=== PATIENT | male | born 1990 | race Caucasian/White ===

== ENCOUNTER 2018-05-18 17:09 | Emergency (ER) | payer OTHER ==
--- NOTE | 2018-05-18 17:27 | EDPHY ---
General - Diagnostics Imaging: Discussed imaging studies w/ yardage caller Radiologist, I viewed and interpreted images myself - History Smoking Status: Current some day smoker Time Seen by Provider: 05/18/18 17:17 Narrative: CHIEF COMPLAINT: Abdominal pain, diarrhea HISTORY OF PRESENT ILLNESS: Patient presents by private vehicle with complaints of abdominal pain, diarrhea and bloody stools. He reports 2 days history of abdominal pain. He points the epigastrium in the right side of his abdomen. Gradual onset. Constant duration. Symptoms do wax and wane but they never fully resolved. Rated as a 7 /10 at this time. Occasionally 10/10. Worse with palpation and ingestion of food. Some improvement rest and while in p.o.. Associated with nausea but no vomiting. No fever chills. No trauma or injury. He has had diarrhea over the past couple days, and this evening had 1 episode of bloody stool. He also has some dark stool, that he attributes to taking Pepto-Bismol. He has no chest pain or shortness of breath. No fever. No anticoagulation use. No previous history of this. Does have a mother with history of ulcerative colitis. No other associated complaints or modifying factors. REVIEW OF SYSTEMS: 10 systems were reviewed and negative with the exception of the elements mentioned in the history of present illness. PCP: Dr. Sorto SPECIALISTS: None PAST MEDICAL HISTORY: Denies PAST SURGICAL HISTORY: No surgical history. SOCIAL HISTORY: Occasional tobacco, alcohol marijuana use. Lives independently. 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 Well appearing. Head: normocephalic, atraumatic Eyes: Pupils equal and round, no conjunctival pallor or injection ENT, Mouth: Mucous membranes moist. No oral mucosal lesions. Neck: Normal inspection, supple, non-tender Respiratory: Lungs are clear to auscultation Cardiovascular: Regular rate and rhythm. No murmur. Good signs Gastrointestinal: Abdomen is soft and nondistended. There is moderate tenderness in the epigastrium and the right quadrants. Bowel sounds are present all 4 quadrants. There is no tympany rigidity. No guarding. No palpable mass. Back: non-tender, no bony abnormalities Neurological: A&O, nonfocal, normal gait Skin: Warm and dry, no rash. No petechiae or purpura Extremities: Nontender, no pedal edema Psychiatric: Mood and affect normal DIFFERENTIAL DIAGNOSES: Including but not limited to ulcerative colitis, Crohn's, irritable bowel, mesenteric adenitis, colitis, diverticulitis, pancreatitis, gastritis, cholecystitis MDM: 5:20 p.m. Abdominal pain with reported diarrhea and 1 episode of bright red blood in stools. Patient has history abdominal examination this suggest possible Crohn's /inflammatory bowel. He does have family history of this. No previous episode of this. He does have moderate to severe tenderness in the epigastrium right side. He is not guarding. He has no acute distress. Do feel he warrants CT imaging at this time. IV has been established. Laboratory studies pending. IV fluid pain medication ordered. 6:00 p.m.. Laboratory studies are well within normal limits. CT scan pending. 6:52 p.m. Notified by radiologist Dr. Heredia. We discussed the CT findings of the abdomen and pelvis. There are inflammatory changes in the ascending colon up to the hepatic flexure. There may also be some involvement of the sigmoid colon and rectum. There is some free fluid noted. No pneumoperitoneum. I discussed the case with Dr. Aguilar and he will evaluate the patient. 7:00 p.m. We have both evaluated the patient and agree that he is stable for discharge home. The patient agrees with this as well. He would like to go home. His pain is tolerable. We discussed discharge home with pain medication, nausea medication follow up with primary care physician and GI physician for definitive care. We discussed strict ED precautions for any fever, worsening pain, nausea, vomiting. We discussed clear liquid diet for the next few days and dietary changes. I have answered all his questions. He is well-appearing and discharged stable condition. SUPERVISION: Patient was evaluated and examined in conjunction with my secondary supervising physician as documented. We have both examined the patient. CONSULTATION: None (Carloz To) - Diagnostics Imaging Results: Imaging Impressions Abdomen CT 05/18/18 17:27 Impression: 1. Evidence for proximal colon inflammation with possible low sigmoid and rectal inflammation as well. 2. Pelvic free fluid. Results discussed with Carloz To at 7:00 PM. General information for patients regarding this examination can be found at [email or web address]. If you have questions or comments about this report, please contact me at (hospital) or [phone] ([facility]). - Objective Vital Signs: Initial Vital Signs Temperature (C) 98.1 F 05/18/18 17:12 Heart Rate 88 05/18/18 17:12 Respiratory Rate 16 05/18/18 17:12 Blood Pressure 101/65 05/18/18 17:12 O2 Sat (%) 97 05/18/18 17:12 O2 Delivery Mode Room Air Allergies/Adverse Reactions: No Known Allergies Allergy (Verified 10/01/13 16:08) Home Medications: Medication Instructions Recorded Ondansetron Odt [Zofran Odt 4 mg 4 mg PO Q6 PRN #12 tab 05/18/18 (*)] oxyCODONE HCL/ACETAMINOPHEN 1 each PO Q4-6PRN PRN #7 tablet 05/18/18 [Percocet 5-325 mg Tablet] Laboratory Results: Laboratory Results 05/18/18 17:20 05/18/18 17:20 05/18/18 05/18/18 05/18/18 17:32 17:20 17:20 WBC RBC Hgb POC Hgb 16.0 gm/dL gm/dL (13.7-17.5) Hct POC Hct 47 % % (40-51) MCV MCH MCHC RDW Plt Count MPV Neut % (Auto) Lymph % (Auto) [place] % (Auto) Eos % (Auto) Baso % (Auto) Nucleat RBC Rel Count Absolute Neuts (auto) Absolute Lymphs (auto) Absolute Monos (auto) Absolute Eos (auto) Absolute Basos (auto) Absolute Nucleated RBC Immature Gran % Immature Gran # PT 12.7 SEC SEC (12.0-15.0) INR 0.93 (0.83-1.16) APTT 28.9 SEC SEC (23.0-38.0) POC Sodium 140 mEq/L mEq/L (135-145) Sodium 138 mEq/L mEq/L (135-145) POC Potassium 3.4 mEq/L mEq/L (3.3-5.0) Potassium 3.8 mEq/L mEq/L (3.5-5.2) POC Chloride 99 mEq/L mEq/L (97-110) Chloride 102 mEq/L mEq/L (97-110) Carbon Dioxide 25 mEq/l mEq/l (22-31) Anion Gap 11 mEq/L mEq/L (6-14) POC BUN 4 mg/dL L mg/dL (7-23) BUN 6 mg/dL L mg/dL (7-23) Creatinine 0.8 mg/dL mg/dL (0.7-1.3) POC Creatinine 0.8 mg/dL mg/dL (0.7-1.3) Estimated GFR > 60 Glucose 92 mg/dL mg/dL (70-100) POC Glucose 92 mg/dL mg/dL (70-100) Calcium 9.5 mg/dL mg/dL (8.5-10.4) Total Bilirubin 0.8 mg/dL mg/dL (0.1-1.4) Conjugated Bilirubin 0.3 mg/dL mg/dL (0.0-0.5) Unconjugated Bilirubin 0.5 mg/dL mg/dL (0.0-1.1) AST 29 IU/L IU/L (17-59) ALT 36 IU/L IU/L (21-72) Alkaline Phosphatase 67 IU/L IU/L (38-126) Total Protein 7.7 g/dL g/dL (6.3-8.2) Albumin 4.6 g/dL g/dL (3.5-5.0) Lipase 85 IU/L IU/L (23-300) 05/18/18 17:20 WBC 8.85 10^3/uL 10^3/uL (3.80-9.50) RBC 5.25 10^6/uL 10^6/uL (4.40-6.38) Hgb 16.4 g/dL g/dL (13.7-17.5) POC Hgb Hct 47.3 % % (40.0-51.0) POC Hct MCV 90.1 fL fL (81.5-99.8) MCH 31.2 pg pg (27.9-34.1) MCHC 34.7 g/dL g/dL (32.4-36.7) RDW 11.5 % % (11.5-15.2) Plt Count 263 10^3/uL 10^3/uL (150-400) MPV 9.1 fL fL (8.7-11.7) Neut % (Auto) 74.7 % H % (39.3-74.2) Lymph % (Auto) 14.2 % L % (15.0-45.0) [place] % (Auto) 10.3 % % (4.5-13.0) Eos % (Auto) 0.3 % L % (0.6-7.6) Baso % (Auto) 0.3 % % (0.3-1.7) Nucleat RBC Rel Count 0.0 % % (0.0-0.2) Absolute Neuts (auto) 6.60 10^3/uL H 10^3/uL (1.70-6.50) Absolute Lymphs (auto) 1.26 10^3/uL 10^3/uL (1.00-3.00) Absolute Monos (auto) 0.91 10^3/uL H 10^3/uL (0.30-0.80) Absolute Eos (auto) 0.03 10^3/uL 10^3/uL (0.03-0.40) Absolute Basos (auto) 0.03 10^3/uL 10^3/uL (0.02-0.10) Absolute Nucleated RBC 0.00 10^3/uL 10^3/uL (0-0.01) Immature Gran % 0.2 % % (0.0-1.1) Immature Gran # 0.02 10^3/uL 10^3/uL (0.00-0.10) PT INR APTT POC Sodium Sodium POC Potassium Potassium POC Chloride Chloride Carbon Dioxide Anion Gap POC BUN BUN Creatinine POC Creatinine Estimated GFR Glucose POC Glucose Calcium Total Bilirubin Conjugated Bilirubin Unconjugated Bilirubin AST ALT Alkaline Phosphatase Total Protein Albumin Lipase Medications Given: Discontinued Medications Sodium Chloride (Ns) 1,000 mls @ 0 mls/hr IV EDNOW ONE; Wide Open PRN Reason: Protocol Stop: 05/18/18 17:29 Last Admin: 05/18/18 17:36 Dose: 1,000 mls Morphine Sulfate (Morphine) 6 mg IVP EDNOW ONE Stop: 05/18/18 17:29 Last Admin: 05/18/18 17:37 Dose: 6 mg Ondansetron HCl (Zofran) 4 mg IVP EDNOW ONE Stop: 05/18/18 17:29 Last Admin: 05/18/18 17:37 Dose: 4 mg Point of Care Test Results: Chemistry 05/18/18 17:32 POC Sodium 140 mEq/L mEq/L (135-145) POC Potassium 3.4 mEq/L mEq/L (3.3-5.0) POC Chloride 99 mEq/L mEq/L (97-110) POC BUN 4 mg/dL L mg/dL (7-23) POC Creatinine 0.8 mg/dL mg/dL (0.7-1.3) POC Glucose 92 mg/dL mg/dL (70-100) ISTAT H&H 05/18/18 17:32 POC Hgb 16.0 gm/dL gm/dL (13.7-17.5) POC Hct 47 % % (40-51) Departure - Departure Disposition: Home, Routine, Self-Care Clinical Impression: Colitis Abdominal pain Qualifiers: Abdominal location: unspecified location Qualified Code(s): R10.9 - Unspecified abdominal pain Condition: Good Instructions: Oxycodone/Acetaminophen (By mouth), Ondansetron (By mouth), Crohn Disease (ED), Clear Liquid Diet (ED), Ulcerative Colitis (ED), Colitis (ED ) Additional Instructions: 1. Pain medication as prescribed as needed 2. Nausea medication as prescribed as needed 3. Recommend clear liquid diet for the next few days 4. Contact primary care physician and GI physician for definitive care 5. Return to emergency department for any worsening pain, fever, vomiting, persistent blood in stool Referrals: Rikki Sorto MD [Medical Doctor] - As per Instructions Barry Smyth MD [Medical Doctor] - As per Instructions Prescriptions: Ondansetron Odt [Zofran Odt 4 mg (*)] 4 mg PO Q6 PRN #12 tab PRN Reason: Nausea/Vomiting, Use 1st oxyCODONE HCL/ACETAMINOPHEN [Percocet 5-325 mg Tablet] 1 each PO Q4-6PRN PRN #7 tablet PRN Reason: Pain, Breakthrough
[2018-05-18] MEDS ORDERED: ONDANSETRON 4 MG/2 ML VIAL IVP ONE (17:28)
[2018-05-18] MEDS ORDERED: NS 1,000 ML IV ONE (17:28)
[2018-05-18 17:34] LABS: PLATELET COUNT 263 10^3/uL (150-400)
[2018-05-18 17:42] LABS: INR 0.93 (0.83-1.16); PROTIME(PATIENT) 12.7 SEC (12.0-15.0)
[2018-05-18] MEDS ORDERED: IOPAMIDOL (ISOVUE-300) 100 ML BTL ONE (18:13)
[2018-05-18 19:11] VITALS: BP 116/80
== END 2018-05-18 19:37 | disposition home or self-care (01) ==
DX: K52.9 Noninfective gastroenteritis and colitis, unspecified (principal); R10.9 Unspecified abdominal pain; E86.9 Volume depletion, unspecified; F17.200 Nicotine dependence, unspecified, uncomplicated
CPT/HCPCS: 82435-PO; 82565-PO; 82947-PO; 84132-PO; 84295-PO; 84520-PO; 85014-PO; 96374; J2270; J2405; Q9967